=== PATIENT | female | born 1975 | race Caucasian/White ===

== ENCOUNTER 2017-02-12 16:10 | Emergency (ER) | payer OTHER ==
[2017-02-12 17:00] LABS: BILIRUBIN,URINE NEGATIVE (NEGATIVE); PH,URINE 7.5 PH (5.0-7.5)
[2017-02-12 17:03] LABS: HCG UR QUAL NEGATIVE; UA CHARGE (STRIP ONLY) YES; UR CULTURE IF IND NOT INDICATED
--- NOTE | 2017-02-12 17:46 | ED Physician Documentation ---
PD HPI FEMALE - Stated complaint Stated Complaint: BLEEDING/5WKS - Chief complaint Chief Complaint: General - History obtained from History obtained from: Patient - History of Present Illness Timing - onset: How many hours ago (1-2), Today Timing - duration: Hours (1-2) Timing - details: Abrupt onset, Still present (tapering bleeding into the ED; had used 2-3 pads in the first hour.) Associated symptoms: Pelvic pain, Vaginal bleeding. No: Vaginal discharge, Genital sore/lesion Contributing factors: (about 5 weeks by dates) [employer] History: G (5), P (3), Miscarriage(s) (1) Similar symptoms before: Diagnosis (her prior miscarriage was IUFD at 23 weeks, so different than this.) Recently seen: Not recently seen Review of Systems Constitutional: denies: Fever, Chills Nose: denies: Rhinorrhea / runny nose, Congestion Throat: denies: Sore throat Respiratory: denies: Cough GI: denies: Vomiting, Diarrhea : denies: Dysuria, Frequency, Discharge Neurologic: denies: Generalized weakness, Near syncope PD PAST MEDICAL HISTORY - Past Medical History Past Medical History: No Respiratory: None Neuro: None Endocrine/Autoimmune: None Other Past Medical History: atopical cervix - Past Surgical History Past Surgical History: No - Present Medications Home Medications: Ambulatory Orders Medication Instructions Recorded Confirmed No Known Home Medications [No 02/12/17 02/12/17 Known Home Medications] - Allergies Allergies/Adverse Reactions: Allergies Allergy/AdvReac Type Severity Reaction Status Date / Time No Known Drug Allergies Allergy Verified 02/12/17 16:19 - Social History Does the pt smoke?: No Smoking Status: Never smoker Does the pt drink ETOH?: No Does the pt have substance abuse?: No PD ED PE NORMAL - Vitals Vital signs reviewed: Yes - General General: Alert and oriented X 3, No acute distress, Well developed/nourished - Neck Neck: Supple, no meningeal sign, No adenopathy - Cardiac Cardiac: RRR, No murmur - Respiratory Respiratory: Clear bilaterally - Abdomen Abdomen: Normal bowel sounds, Soft, Non distended, No organomegaly, Other (mild tenderness suprapubic area) - Female Female : Deferred - Rectal Rectal: Deferred - Derm Derm: Normal color, Warm and dry - Neuro Neuro: Alert and oriented X 3, No motor deficit, Normal speech Results - Vitals Vitals: Oxygen O2 Source Room air - Labs Labs: Laboratory Tests 02/12/17 02/12/17 02/12/17 16:55 18:22 18:22 WBC 6.8 RBC 4.64 Hgb 13.6 Hct 40.8 MCV 87.9 MCH 29.2 MCHC 33.2 RDW 13.8 Plt Count 210 MPV 8.4 Neut # 4.5 Lymph # 1.7 Grainger # 0.5 Eos # 0.1 Baso # 0.0 Absolute Nucleated RBC 0.00 Nucleated RBCs 0.0 Prolactin HCG, Quant 13.64 Urine Color YELLOW Urine Clarity CLEAR Urine pH 7.5 Ur Specific [place] 1.020 Urine Protein NEGATIVE Urine Glucose (UA) NEGATIVE Urine Ketones NEGATIVE Urine Occult Blood TRACE-INTA Urine Nitrite NEGATIVE Urine Bilirubin NEGATIVE Urine Urobilinogen 0.2 (NORMAL) Ur Leukocyte Esterase NEGATIVE Ur Microscopic Review NOT INDICATED Urine Culture Comments NOT INDICATED Urine HCG, Qual NEGATIVE Blood Type 02/12/17 02/12/17 18:22 18:22 WBC RBC Hgb Hct MCV MCH MCHC RDW Plt Count MPV Neut # Lymph # Grainger # Eos # Baso # Absolute Nucleated RBC Nucleated RBCs Prolactin 6.03 HCG, Quant Urine Color Urine Clarity Urine pH Ur Specific [place] Urine Protein Urine Glucose (UA) Urine Ketones Urine Occult Blood Urine Nitrite Urine Bilirubin Urine Urobilinogen Ur Leukocyte Esterase Ur Microscopic Review Urine Culture Comments Urine HCG, Qual Blood Type O POSITIVE - Rads (name of study) OB U/S Radiology: Prelim report reviewed (no IUP seen. Adnexa normal. No free fluid.) PD MEDICAL DECISION MAKING - ED course Complexity details: reviewed results (such a low quant for dates of 5 weeks with normal U/S suggests prior miscarriage with now completion of it. Recommend repeat quant in 2-3 days. She has minimal bleeding now in ED. CBC is good. She is Rh positive. ), considered differential, d/w patient Departure - Departure Disposition: 01 Home, Self Care Clinical Impression: Vaginal bleeding in , Miscarriage Condition: Stable Record reviewed to determine appropriate education?: Yes Instructions: ED Miscarriage Completed Follow-Up: Stephanie Walker ARNP [Primary Care Provider] - Comments: Drink lots of fluids. Tylenol or ibuprofen if needed for pains. The ultrasound did not find any in the uterus. Given this along with the very low quantitative level of 13 would likely suggest a prior miscarriage that is now completed. However for completeness, would suggest getting a repeat hCG quantitative level in 3 days or so to see it still falling and not rising. Return if pain, fever, severe bleeding, other concerns over the next few days. Discharge Date/Time: 02/12/17 20:20
[2017-02-12 18:46] LABS: BASOPHILS % (AUTO) 0.6 %; EOSINOPHILS # (AUTO) 0.1 10^3/uL (0.0-0.7); EOSINOPHILS % (AUTO) 0.9 %; HCT - HEMATOCRIT 40.8 % (37.0-47.0); HGB - HEMOGLOBIN 13.6 g/dL (12.0-16.0); LYMPHOCYTES # (AUTO) 1.7 10^3/uL (1.5-3.5); LYMPHOCYTES % (AUTO) 24.4 %; MEAN CORPUSCULAR HEMOGLOBIN 29.2 pg (27.0-31.0); MEAN CORPUSCULAR HGB CONC 33.2 g/dL (32.0-36.0); MEAN CORPUSCULAR VOLUME 87.9 fL (81.0-99.0); MEAN PLATELET VOLUME 8.4 fL (7.9-10.8); MONOCYTES # (AUTO) 0.5 10^3/uL (0.0-1.0); MONOCYTES % (AUTO) 7.4 %; NEUTROPHILS # (AUTO) 4.5 10^3/uL (1.5-6.6); NEUTROPHILS % (AUTO) 66.7 %; RED BLOOD COUNT 4.64 10^6/uL (4.20-5.40); RED CELL DISTRIBUTION WIDTH 13.8 % (12.0-15.0); UNCORRECTED WHITE BLOOD COUNT 6.8 x10^3/uL; WHITE BLOOD COUNT 6.8 x10^3/uL (4.8-10.8)
--- NOTE | 2017-02-12 19:29 | Ultrasound Preliminary Report ---
Exam: US OB First Trimester IMPRESSION: 1. No intrauterine gestational sac is noted. 2. No adnexal lesion. Both ovaries are normal. [facility] SITE ID: [id number]
--- NOTE | 2017-02-12 19:53 | Ultrasound Report ---
EXAM: FIRST TRIMESTER OBSTETRIC ULTRASOUND (Less than 11 weeks) EXAM DATE: 02/12/2017 07:00 PM. CLINICAL HISTORY: 5 weeks by dates; vaginal bleeding today. LMP: 01/03/2017. COMPARISONS: None. TECHNIQUE: Transabdominal and transvaginal ultrasound examination with static image documentation. CLINICAL DATES: EGA 5 weeks 5 days with HILARY 10/10/2017 based on LMP. ASSESSMENT: Gestational Sac: None detected. Embryo: None detected. Cardiac activity: None detected. Yolk sac: Not applicable. Amniotic fluid: Not applicable. Early placenta: Not applicable. Other: None. MATERNAL STRUCTURES: Uterus: Anteverted. Unremarkable. Endometrium: Measures 8.7 mm. No focal mass or polyp. Cervix: Small foci of hyperechoic material within the cervix measuring up to 0.6 cm. Presumably, thes e represent complex nabothian cysts with debris or proteinaceous material. No cervical mass is noted. Right Ovary/Adnexa: Unremarkable. The ovary measures 3.9 x 1.6 x 2 cm, volume 6.5 cc. Left Ovary/Adnexa: Unremarkable. The ovary measures 3.7 x 2.4 x 2 cm, volume 9.2 cc. Free Fluid: None. Other: None. IMPRESSION: 1. No intrauterine gestational sac is noted. 2. No adnexal lesion. Both ovaries are normal. ÓSCAR Referring Provider Line: [phone] SITE ID: [id number]
[2017-02-12 20:16] VITALS: BP 119/63
== END 2017-02-12 20:20 | disposition home or self-care (01) ==
LOC: ED 16:10
DX: O03.9 Complete or unspecified spontaneous abortion without complication (principal); O09.521 Supervision of elderly multigravida, first trimester; Z3A.01 Less than 8 weeks gestation of pregnancy
CPT/HCPCS: 36415; 76801; 76817; 81001; 81003; 81025; 84146; 84702; 85025; 86900; 86901; 87086; 99283